=== PATIENT | male | born 1995 | race Caucasian/White ===

== ENCOUNTER 2018-05-12 17:56 | Emergency (ER) | payer BC, OTHER ==
--- NOTE | 2018-05-12 18:54 | EDPHY ---
H & P Time Seen by Provider: 05/12/18 18:20 HPI/ROS: CHIEF COMPLAINT: Left flank pain HISTORY OF PRESENT ILLNESS: The patient is a 22-year-old male who presents emergency department with abdominal pain and left flank pain. Patient states his symptoms started Thursday night Thursday morning. He initially describes flu- like symptoms. He had vague abdominal discomfort and nausea. He was seen at urgent care on Thursday. He was subsequently sent home. Today his pain focused more in the left flank. He went for evaluation at urgent care was sent to the emergency department. He has had no dysuria or frequency. No fevers or chills. He has had mild describe nausea but no vomiting. No diarrhea. The patient reports that his sugars have been well controlled. REVIEW OF SYSTEMS: 10 systems were reveiwed and are negative with the exception of the elements mentioned in the history of present illness. Past Medical/Surgical History: Diabetes type 1 Smoking Status: Never smoked Physical Exam: Vitals noted. GENERAL: Well-appearing, in no acute distress, alert. HEENT: Eyes normal to inspection, normal pharynx, no signs of dehydration. NECK: Normal, supple. RESPIRATORY: Clear to auscultation bilaterally, no rales, rhonchi or wheezing. CVS: Regular rate and rhythm, no rubs, murmurs, or gallops. ABDOMEN: Soft, nontender, nondistended, no organomegaly. Benign BACK: Normal to inspection, the minimal left CVA tenderness. SKIN: Normal color, no rash, warm, dry. No pallor. EXTREMITIES: No pedal edema, no calf tenderness, no Homans sign or cords, no joint swelling. NEURO/PSYCH: Alert and oriented, normal mood and affect, normal motor sensory exam. Constitutional: Initial Vital Signs Temperature (C) 36.7 C 05/12/18 18:07 Heart Rate 59 L 05/12/18 18:07 Respiratory Rate 16 05/12/18 18:07 Blood Pressure 145/71 H 05/12/18 18:07 O2 Sat (%) 98 05/12/18 18:07 O2 Delivery Mode Room Air Allergies/Adverse Reactions: No Known Allergies Allergy (Unverified 05/12/18 18:07) Home Medications: Medication Instructions Recorded Humalog 05/12/18 Medical Decision Making ED Course/Re-evaluation: In the emergency department I discussed possible etiologies with the patient. I answered all his questions. IV was placed. Patient given normal saline 500 mL IV for hydration. He is given Toradol 30 mg IV for discomfort. Laboratory studies were obtained. On recheck the patient was stable. He is lying in the bed watching a video. CBC and chemistry unremarkable. UA negative. I rechecked the patient. He was doing well. He had no new complaints. He was in no distress. He was given warnings prior to leaving. He will return with worsening symptoms. He will take ibuprofen the next 3 days. Differential Diagnosis: My differential includes but is not limited to urinary tract infection, pyelonephritis, kidney stone, diverticulitis, diverticulosis, small-bowel obstruction, sugar abnormality, electrolyte abnormality - Data Points Laboratory Results: Laboratory Results 05/12/18 18:34 05/12/18 18:34 05/12/18 05/12/18 05/12/18 18:50 18:34 18:34 WBC 6.04 10^3/uL 10^3/uL (3.80-9.50) RBC 4.67 10^6/uL 10^6/uL (4.40-6.38) Hgb 15.1 g/dL g/dL (13.7-17.5) Hct 43.0 % % (40.0-51.0) MCV 92.1 fL fL (81.5-99.8) MCH 32.3 pg pg (27.9-34.1) MCHC 35.1 g/dL g/dL (32.4-36.7) RDW 11.2 % L % (11.5-15.2) Plt Count 150 10^3/uL 10^3/uL (150-400) MPV 11.6 fL fL (8.7-11.7) Neut % (Auto) 55.4 % % (39.3-74.2) Lymph % (Auto) 33.3 % % (15.0-45.0) [place] % (Auto) 8.9 % % (4.5-13.0) Eos % (Auto) 1.7 % % (0.6-7.6) Baso % (Auto) 0.5 % % (0.3-1.7) Nucleat RBC Rel Count 0.0 % % (0.0-0.2) Absolute Neuts (auto) 3.35 10^3/uL 10^3/uL (1.70-6.50) Absolute Lymphs (auto) 2.01 10^3/uL 10^3/uL (1.00-3.00) Absolute Monos (auto) 0.54 10^3/uL 10^3/uL (0.30-0.80) Absolute Eos (auto) 0.10 10^3/uL 10^3/uL (0.03-0.40) Absolute Basos (auto) 0.03 10^3/uL 10^3/uL (0.02-0.10) Absolute Nucleated RBC 0.00 10^3/uL 10^3/uL (0-0.01) Immature Gran % 0.2 % % (0.0-1.1) Immature Gran # 0.01 10^3/uL 10^3/uL (0.00-0.10) Sodium 138 mEq/L mEq/L (135-145) Potassium 3.9 mEq/L mEq/L (3.5-5.2) Chloride 100 mEq/L mEq/L (97-110) Carbon Dioxide 25 mEq/l mEq/l (22-31) Anion Gap 13 mEq/L mEq/L (6-14) BUN 19 mg/dL mg/dL (7-23) Creatinine 1.4 mg/dL H mg/dL (0.7-1.3) Estimated GFR > 60 Glucose 146 mg/dL H mg/dL (70-100) Calcium 9.3 mg/dL mg/dL (8.5-10.4) Urine Color PALE YELLOW Urine Appearance CLEAR Urine pH 6.0 (5.0-7.5) Ur Specific [place] 1.002 (1.002-1.030) Urine Protein NEGATIVE (NEGATIVE) Urine Ketones NEGATIVE (NEGATIVE) Urine Blood NEGATIVE (NEGATIVE) Urine Nitrate NEGATIVE (NEGATIVE) Urine Bilirubin NEGATIVE (NEGATIVE) Urine Urobilinogen NEGATIVE EU EU (0.2-1.0) Ur Leukocyte Esterase NEGATIVE (NEGATIVE) Urine RBC 1-3 /hpf /hpf (0-3) Urine WBC 1-3 /hpf /hpf (0-3) Ur Epithelial Cells NONE SEEN /lpf /lpf (NONE-1+) Urine Mucus TRACE /lpf /lpf (NONE-1+) Urine Glucose NEGATIVE (NEGATIVE) Medications Given: Discontinued Medications Sodium Chloride (Ns) 500 mls @ 0 mls/hr IV EDNOW ONE; Wide Open PRN Reason: Protocol Stop: 05/12/18 18:58 Last Admin: 05/12/18 19:02 Dose: 500 mls Ketorolac Tromethamine (Toradol) 30 mg IVP EDNOW ONE Stop: 05/12/18 18:58 Last Admin: 05/12/18 19:01 Dose: 30 mg Departure - Departure Disposition: Home, Routine, Self-Care Clinical Impression: Flank pain Condition: Good Instructions: Flank Pain (ED) Additional Instructions: Return with increasing pain, fever, vomiting or any other concerns. Take ibuprofen for the next 3 days. Referrals: Gregorio Damon DO [Doctor of Osteopathy] - 5-7 days, call for appt.
[2018-05-12] MEDS ORDERED: NS 500 ML IV ONE (18:57)
[2018-05-12] MEDS ORDERED: KETOROLAC 30 MG/1 ML SDV IVP ONE (18:57)
[2018-05-12 19:04] LABS: PLATELET COUNT 150 10^3/uL (150-400)
[2018-05-12 20:24] VITALS: BP 153/88
== END 2018-05-12 20:24 | disposition home or self-care (01) ==
DX: R10.9 Unspecified abdominal pain (principal); E86.9 Volume depletion, unspecified
CPT/HCPCS: 96374; J1885